=== PATIENT | male | born 1950 | race Caucasian/White ===

== ENCOUNTER → 2023-01-14 | Outpatient (CLI) | payer MEDICARE, BC | LOC: M PLARAD 10:47 | PROVIDERS: ATTEND Obstetrics & Gynecology | DX: C34.12 Malignant neoplasm of upper lobe, left bronchus or lung (principal) | CPT/HCPCS: 78815; A9552 ==

== ENCOUNTER → 2023-02-15 | Outpatient (CLI) | payer BC ==
[~2023-02-15] VITALS: Ht 175.3 cm; Wt 87.7 kg
[~2023-02-15] MED LIST: ALBU8.5H INH; ELIQ5TAB PO; FURO40TA2 PO; IPRA0.00 INH; LIDO1PAD TOP; LOSA25TA13 PO; METH1TAB13 PO; METO1TAB87 PO; NALO4SPR INH; OXYC-1 PO; OXYC20TA64 PO; PERCOCET PO; POTA-151 PO; SEMA14TA2 PO; SYMB16INH INH
[2023-02-15 14:11] VITALS: BP 112/60; TEMP 97; O2SAT 99
== END ==
LOC: M ONCR 13:12
PROVIDERS: ATTEND General Practice
DX: C34.12 Malignant neoplasm of upper lobe, left bronchus or lung (principal); G93.9 Disorder of brain, unspecified; G47.33 Obstructive sleep apnea (adult) (pediatric); I26.99 Other pulmonary embolism without acute cor pulmonale; I51.9 Heart disease, unspecified; I89.0 Lymphedema, not elsewhere classified; J44.9 Chronic obstructive pulmonary disease, unspecified; Z71.2 Person consulting for explanation of examination or test findings; Z79.01 Long term (current) use of anticoagulants; Z79.51 Long term (current) use of inhaled steroids; Z79.899 Other long term (current) drug therapy; Z87.891 Personal history of nicotine dependence; Z88.8 Allergy status to other drugs, medicaments and biological substances; Z91.040 Latex allergy status

== ENCOUNTER → 2023-02-22 | Outpatient (CLI) | payer MEDICARE, BC ==
[~2023-02-22] MED LIST changes: +ATIV1TAB10 PO; +CYCL5TAB PO; +FENT1DIS14 TOP; +HYOS125TA PO; +LIDO5TD TOP; +LIDOCAINE 1% MDV 20ML VIAL As Ordered ONE; +LIDOCAINE W/EPINEPHRINE 1% 20ML VIAL As Ordered ONE; +METF500T13 PO; +MIDAZOLAM INJ 2MG/2ML VIAL As Ordered ONE; +MORP1SOL5 PO; +NARC1SPR NARES; +ONDA-83 PO; +OXYC15TA66 PO; +OXYC30TA72 PO; +TRAN1DIS4 TOP; +ceFAZolin 2 GM/D5W 50 ML IV BAG As Ordered ONE; +ceFAZolin SOD 2 GM in IV 1 EA IV ONE; +fentaNYL 100 MCG/2 ML INJECTION As Ordered ONE
[2023-02-22 12:35] VITALS: TEMP 99.1
[2023-02-22 16:00] VITALS: BP 99/56; O2SAT 94
== END ==
LOC: M IRPRO 12:29
PROVIDERS: ATTEND Internal Medicine Hematology & Oncology
DX: C34.90 Malignant neoplasm of unspecified part of unspecified bronchus or lung (principal)
CPT/HCPCS: 36561; 99152; 99153; C1769; C1788; C1894; J0690; J2250; J3010

== ENCOUNTER 2023-03-01 15:03 | Inpatient (IN) | payer MEDICARE, BC ==
[~2023-03-01] VITALS: Ht 167.6 cm; Wt 83.5 kg
[~2023-03-01 15:03] MED LIST changes: -ATIV1TAB10 PO; -HYOS125TA PO; -LIDO5TD TOP; -LIDOCAINE 1% MDV 20ML VIAL As Ordered ONE; -LIDOCAINE W/EPINEPHRINE 1% 20ML VIAL As Ordered ONE; -METF500T13 PO; -MIDAZOLAM INJ 2MG/2ML VIAL As Ordered ONE; -MORP1SOL5 PO; -OXYC15TA66 PO; -TRAN1DIS4 TOP; -ceFAZolin 2 GM/D5W 50 ML IV BAG As Ordered ONE; -ceFAZolin SOD 2 GM in IV 1 EA IV ONE; -fentaNYL 100 MCG/2 ML INJECTION As Ordered ONE
[2023-03-01 17:48] LABS: BASO # 0.1 10^3/uL (0.0-0.2); BASO % 0.2 % (0.0-1.0); EOS # 0.2 10^3/uL (0.0-0.5); EOS % 0.8 % (0.0-3.0); LYMPH # 0.3 10^3/uL (1.5-5.0); LYMPH % 1.3 % (24.0-44.0); MEAN CORPUSCULAR HEMOGLOBIN 25.3 pg (27.0-33.0); MEAN CORPUSCULAR HGB CONC 31.7 g/dl (32.0-36.5); MEAN CORPUSCULAR VOLUME 79.9 fl (80.0-96.0); MONO # 0.9 10^3/uL (0.0-0.8); MONO % 4.3 % (2.0-8.0); NEUTROPHILS % 91.9 % (36.0-66.0); PLATELET COUNT, AUTOMATED 371 10^3/uL (150-450); RED BLOOD COUNT 4.38 10^6/uL (4.30-6.10); WHITE BLOOD COUNT 20.7 10^3/uL (4.0-10.0)
[2023-03-01 17:49] LABS: HEMOGLOBIN 11.1 g/dl (13.5-17.5)
[2023-03-01 18:14] LABS: THYROID STIMULATING HORMONE 3.795 uIU/ML (0.55-4.78)
[2023-03-01 18:19] LABS: ALBUMIN 2.6 G/DL (3.2-5.2); ALKALINE PHOSPHATASE 117 U/L (46-116); ALT/SGPT 14 U/L (7.0-40); AST/SGOT 19 U/L (<34); BILIRUBIN,DIRECT 0.6 MG/DL (<0.4); BILIRUBIN,TOTAL 1.3 MG/DL (0.3-1.2); BLOOD UREA NITROGEN 12 MG/DL (9-23); CARBON DIOXIDE LEVEL 32 MMOL/L (20-31); CHLORIDE LEVEL 94 MMOL/L (98-107); CREATININE FOR GFR 0.62 MG/DL (0.70-1.30); GLOMERULAR FILTRATION RATE > 60.0 (>42); GLUCOSE, FASTING 103 MG/DL (74-106); POTASSIUM SERUM 3.9 MMOL/L (3.5-5.1); SODIUM LEVEL 135 MMOL/L (136-145); TOTAL PROTEIN 6.1 G/DL (5.7-8.2)
[2023-03-01 18:20] LABS: RSV AMPLIFICATION NEGATIVE (NEGATIVE)
[2023-03-01] MEDS ORDERED: LIDO5TD TOP (21:08)
[2023-03-01] MEDS ORDERED: METF500T13 PO (21:12)
[2023-03-01] MEDS ORDERED: HOME MED LIST COMPLETE! XX SCH (21:15)
[2023-03-01] MEDS ORDERED: DEXTROSE 50% 50ML SYRINGE IV PRN (21:50)
[2023-03-01] MEDS ORDERED: GLUCAGON INJ 1MG VIAL SC PRN (21:50)
[2023-03-01] MEDS ORDERED: GLUCOSE 4GM CHEW TABLET PO PRN (21:50)
[2023-03-01 21:56] LABS: IRON (FE) 40 UG/DL (65-175); PERCENT SATURATION 16.9 % (19.7-50.0); TOTAL IRON BINDING CAPACITY 236 UG/DL (250-425)
[2023-03-01 21:57] LABS: FERRITIN 1181.6 NG/ML (10.5-307.3)
[2023-03-01 21:58] LABS: FOLATE 7.78 NG/ML (>5.4); VITAMIN B12 LEVEL 229 PG/ML (211-911)
[2023-03-01 22:21] VITALS: BP 122/68; TEMP 98.8; O2SAT 89
[2023-03-01] MEDS: ONDANSETRON 4MG TAB PO PRN (23:24)
[2023-03-01] MEDS: DOXYCYCLINE HYCLATE 100MG TABLET PO SCH (23:24)
[2023-03-01] MEDS: cefTRIAXone SOD 2 GM in D5W MINI-BAG PLUS 50 ML IV SCH (23:26)
[2023-03-01] MEDS: PERCOCET 5MG/325MG TAB PO PRN (23:26)
[2023-03-02] VITALS (12 sets, daily range): BP systolic 103–133; BP diastolic 55–67; TEMP 98.1–99.7; O2SAT 85–97
[2023-03-02] MEDS: ALBUTEROL 90 MCG/ACT 8GM HFA INHALER INH PRN (05:02)
[2023-03-02] MEDS: PERCOCET 5MG/325MG TAB PO PRN ×2 (05:39→19:37)
[2023-03-02 06:09] LABS: HEMATOCRIT 32.2 % (42.0-52.0); HEMOGLOBIN 10.2 g/dl (13.5-17.5); MEAN CORPUSCULAR HEMOGLOBIN 25.1 pg (27.0-33.0); MEAN CORPUSCULAR HGB CONC 31.7 g/dl (32.0-36.5); MEAN CORPUSCULAR VOLUME 79.1 fl (80.0-96.0); PLATELET COUNT, AUTOMATED 348 10^3/uL (150-450); RED BLOOD COUNT 4.07 10^6/uL (4.30-6.10); WHITE BLOOD COUNT 17.7 10^3/uL (4.0-10.0)
[2023-03-02 06:19] LABS: INR 1.27; PROTHROMBIN TIME 16.2 SECONDS (12.5-14.5)
[2023-03-02 06:20] LABS: PARTIAL THROMBOPLASTIN TIME 32.8 SECONDS (24.8-34.2)
[2023-03-02 06:39] LABS: BLOOD UREA NITROGEN 10 MG/DL (9-23); CALCIUM LEVEL 9.5 MG/DL (8.3-10.6); CARBON DIOXIDE LEVEL 32 MMOL/L (20-31); CHLORIDE LEVEL 94 MMOL/L (98-107); CREATININE FOR GFR 0.58 MG/DL (0.70-1.30); GLOMERULAR FILTRATION RATE > 60.0 (>42); GLUCOSE, FASTING 98 MG/DL (74-106); MAGNESIUM LEVEL 1.5 MG/DL (1.8-2.4); POTASSIUM SERUM 3.8 MMOL/L (3.5-5.1); SODIUM LEVEL 133 MMOL/L (136-145)
[2023-03-02 06:47] LABS: PROCALCITONIN 0.48 ng/ml
[2023-03-02] MEDS: INSULIN LISPRO (NovoLOG) PER UNIT SC SCH ×4 (07:30→20:57)
[2023-03-02] MEDS: SYMBICORT 160/4.5MCG INHALER 6GM INH SCH ×2 (07:30→19:19)
[2023-03-02] MEDS ORDERED: APIXABAN 5 MG TAB (ELIQUIS) PO SCH (09:00)
[2023-03-02] MEDS ORDERED: CYANOCOBALAMIN 1,000MCG/ML 1ML VIAL IM SCH (09:00)
[2023-03-02] MEDS: LIDOCAINE 5% (LIDODERM) PATCH TOP SCH (09:15)
[2023-03-02] MEDS: LOSARTAN 25 MG TAB PO SCH (09:16)
[2023-03-02] MEDS: METOPROLOL TART 25 MG TABLET PO SCH ×2 (09:16→21:00)
[2023-03-02] MEDS: DOXYCYCLINE HYCLATE 100MG TABLET PO SCH ×2 (09:16→21:16)
[2023-03-02] MEDS: POTASSIUM CHLORIDE 10MEQ SR TABLET PO SCH (09:16)
[2023-03-02] MEDS: DOCUSATE SODIUM 100MG CAPSULE PO SCH ×2 (09:16→21:16)
[2023-03-02] MEDS: SODIUM CHLORIDE 0.9% INJ 10 ML SYR IV SCH (09:18)
[2023-03-02] MEDS: oxyCODONE 15MG CR TAB PO SCH ×2 (09:23→21:18)
[2023-03-02] MEDS: METHYLPHENIDATE ER 18MG TABLET (CONCERTA) PO SCH (12:24)
[2023-03-02] MEDS: IPRATROPIUM 0.5MG/ALBUTEROL 2.5MG INH SOL UD 3ML (DUONEB) INH PRN (17:29)
[2023-03-02] MEDS: cefTRIAXone SOD 2 GM in D5W MINI-BAG PLUS 50 ML IV SCH (23:24)
[2023-03-03 02:38] VITALS: O2SAT 86
[2023-03-03] MEDS: ALBUTEROL 90 MCG/ACT 8GM HFA INHALER INH PRN (02:55)
[2023-03-03 04:25] VITALS: O2SAT 91
[2023-03-03 05:40] VITALS: BP 133/65; TEMP 98.8; O2SAT 90
[2023-03-03 06:18] LABS: HEMATOCRIT 29.1 % (42.0-52.0); HEMOGLOBIN 9.2 g/dl (13.5-17.5); MEAN CORPUSCULAR HGB CONC 31.6 g/dl (32.0-36.5); MEAN CORPUSCULAR VOLUME 79.1 fl (80.0-96.0); PLATELET COUNT, AUTOMATED 284 10^3/uL (150-450); RED BLOOD COUNT 3.68 10^6/uL (4.30-6.10); WHITE BLOOD COUNT 14.9 10^3/uL (4.0-10.0)
[2023-03-03 06:44] LABS: BLOOD UREA NITROGEN 10 MG/DL (9-23); CALCIUM LEVEL 9.2 MG/DL (8.3-10.6); CARBON DIOXIDE LEVEL 31 MMOL/L (20-31); CHLORIDE LEVEL 95 MMOL/L (98-107); GLOMERULAR FILTRATION RATE > 60.0 (>42); GLUCOSE, FASTING 107 MG/DL (74-106); PHOSPHORUS LEVEL 3.4 MG/DL (2.4-5.1); POTASSIUM SERUM 4.1 MMOL/L (3.5-5.1); SODIUM LEVEL 134 MMOL/L (136-145)
[2023-03-03] MEDS: INSULIN LISPRO (NovoLOG) PER UNIT SC SCH ×4 (07:26→20:47)
[2023-03-03] MEDS: SYMBICORT 160/4.5MCG INHALER 6GM INH SCH ×2 (07:32→19:25)
[2023-03-03] MEDS: DOXYCYCLINE HYCLATE 100MG TABLET PO SCH ×2 (09:42→20:37)
[2023-03-03] MEDS: DOCUSATE SODIUM 100MG CAPSULE PO SCH ×2 (09:42→20:36)
[2023-03-03] MEDS: METHYLPHENIDATE ER 18MG TABLET (CONCERTA) PO SCH (09:42)
[2023-03-03] MEDS: POTASSIUM CHLORIDE 10MEQ SR TABLET PO SCH (09:43)
[2023-03-03] MEDS: CYANOCOBALAMIN 500 MCG TAB PO SCH (09:43)
[2023-03-03] MEDS: oxyCODONE 15MG CR TAB PO SCH ×2 (09:44→20:37)
[2023-03-03] MEDS: LOSARTAN 25 MG TAB PO SCH (09:44)
[2023-03-03] MEDS: METOPROLOL TART 25 MG TABLET PO SCH ×2 (09:44→20:37)
[2023-03-03] MEDS: SODIUM CHLORIDE 0.9% INJ 10 ML SYR IV SCH (09:45)
[2023-03-03] MEDS: LIDOCAINE 5% (LIDODERM) PATCH TOP SCH (09:47)
[2023-03-03 10:17] VITALS: O2SAT 91
[2023-03-03] MEDS: PERCOCET 5MG/325MG TAB PO PRN (13:17)
[2023-03-03 14:00] VITALS: BP 109/49; TEMP 97.7; O2SAT 90
[2023-03-03] MEDS: ACETAMINOPHEN TAB 650MG DOSE (2X325MG) PO PRN (18:28)
[2023-03-03 20:50] VITALS: BP 100/54; TEMP 97.5; O2SAT 90
[2023-03-03] MEDS: cefTRIAXone SOD 2 GM in D5W MINI-BAG PLUS 50 ML IV SCH (22:10)
[2023-03-04 05:51] LABS: HEMATOCRIT 30.8 % (42.0-52.0); HEMOGLOBIN 9.7 g/dl (13.5-17.5); MEAN CORPUSCULAR HEMOGLOBIN 25.1 pg (27.0-33.0); MEAN CORPUSCULAR HGB CONC 31.5 g/dl (32.0-36.5); MEAN CORPUSCULAR VOLUME 79.8 fl (80.0-96.0); PLATELET COUNT, AUTOMATED 278 10^3/uL (150-450); RED BLOOD COUNT 3.86 10^6/uL (4.30-6.10); WHITE BLOOD COUNT 14.1 10^3/uL (4.0-10.0)
[2023-03-04 05:53] VITALS: BP 112/62; TEMP 99; O2SAT 95
[2023-03-04 06:14] LABS: ALBUMIN 2.1 G/DL (3.2-5.2); BLOOD UREA NITROGEN 10 MG/DL (9-23); CALCIUM LEVEL 9.1 MG/DL (8.3-10.6); CARBON DIOXIDE LEVEL 30 MMOL/L (20-31); CHLORIDE LEVEL 95 MMOL/L (98-107); CREATININE FOR GFR 0.51 MG/DL (0.70-1.30); GLOMERULAR FILTRATION RATE > 60.0 (>42); GLUCOSE, FASTING 103 MG/DL (74-106); PHOSPHORUS LEVEL 3.6 MG/DL (2.4-5.1); POTASSIUM SERUM 4.3 MMOL/L (3.5-5.1); SODIUM LEVEL 133 MMOL/L (136-145)
[2023-03-04] MEDS: INSULIN LISPRO (NovoLOG) PER UNIT SC SCH ×4 (07:30→20:31)
[2023-03-04] MEDS: SYMBICORT 160/4.5MCG INHALER 6GM INH SCH ×2 (07:55→21:03)
[2023-03-04 08:00] VITALS: O2SAT 93
[2023-03-04] MEDS: METOPROLOL TART 25 MG TABLET PO SCH ×3 (09:00→20:29)
[2023-03-04 09:32] VITALS: BP 110/60
[2023-03-04] MEDS: LIDOCAINE 5% (LIDODERM) PATCH TOP SCH (09:44)
[2023-03-04] MEDS: SODIUM CHLORIDE 0.9% INJ 10 ML SYR IV SCH (09:44)
[2023-03-04] MEDS: oxyCODONE 15MG CR TAB PO SCH ×2 (09:45→20:28)
[2023-03-04] MEDS: CYANOCOBALAMIN 500 MCG TAB PO SCH (09:45)
[2023-03-04] MEDS: METHYLPHENIDATE ER 18MG TABLET (CONCERTA) PO SCH (09:46)
[2023-03-04] MEDS: LOSARTAN 25 MG TAB PO SCH (09:46)
[2023-03-04] MEDS: DOXYCYCLINE HYCLATE 100MG TABLET PO SCH ×2 (09:46→20:28)
[2023-03-04] MEDS: DOCUSATE SODIUM 100MG CAPSULE PO SCH ×2 (09:47→20:28)
[2023-03-04] MEDS: POTASSIUM CHLORIDE 10MEQ SR TABLET PO SCH (09:47)
[2023-03-04] MEDS: PERCOCET 5MG/325MG TAB PO PRN ×2 (11:16→16:32)
[2023-03-04 14:58] VITALS: BP 109/65; TEMP 97.7; O2SAT 94
[2023-03-04] MEDS: NYSTATIN 500,000U/5ML SUSP UDC PO SCH ×2 (16:32→20:28)
[2023-03-04] MEDS: ONDANSETRON 4MG TAB PO PRN (16:42)
[2023-03-04] MEDS: IPRATROPIUM 0.5MG/ALBUTEROL 2.5MG INH SOL UD 3ML (DUONEB) INH PRN (16:58)
[2023-03-04] MEDS ORDERED: guaiFENesin DM LIQ 10ML UD PO PRN (17:20)
[2023-03-04] MEDS ORDERED: ONDANSETRON 4MG 2ML VIAL IV PRN (17:20)
[2023-03-04] MEDS: guaiFENesin/CODEINE SYRUP 5 ML UDC PO PRN (18:41)
[2023-03-04 22:00] VITALS: BP 108/63; TEMP 98.1; O2SAT 95
[2023-03-04] MEDS: cefTRIAXone SOD 2 GM in D5W MINI-BAG PLUS 50 ML IV SCH (22:45)
[2023-03-05 06:29] VITALS: BP 116/64; TEMP 97.9; O2SAT 94
[2023-03-05 06:36] LABS: HEMATOCRIT 27.7 % (42.0-52.0); HEMOGLOBIN 8.6 g/dl (13.5-17.5); MEAN CORPUSCULAR HEMOGLOBIN 24.5 pg (27.0-33.0); MEAN CORPUSCULAR VOLUME 78.9 fl (80.0-96.0); PLATELET COUNT, AUTOMATED 250 10^3/uL (150-450); RED BLOOD COUNT 3.51 10^6/uL (4.30-6.10); WHITE BLOOD COUNT 10.9 10^3/uL (4.0-10.0)
[2023-03-05 06:45] LABS: ALBUMIN 1.8 G/DL (3.2-5.2); BLOOD UREA NITROGEN 12 MG/DL (9-23); CALCIUM LEVEL 8.9 MG/DL (8.3-10.6); CARBON DIOXIDE LEVEL 32 MMOL/L (20-31); CHLORIDE LEVEL 94 MMOL/L (98-107); CREATININE FOR GFR 0.52 MG/DL (0.70-1.30); GLOMERULAR FILTRATION RATE > 60.0 (>42); GLUCOSE, FASTING 99 MG/DL (74-106); PHOSPHORUS LEVEL 3.8 MG/DL (2.4-5.1); POTASSIUM SERUM 4.5 MMOL/L (3.5-5.1); SODIUM LEVEL 131 MMOL/L (136-145)
[2023-03-05] MEDS: INSULIN LISPRO (NovoLOG) PER UNIT SC SCH ×4 (07:30→22:20)
[2023-03-05] MEDS: SYMBICORT 160/4.5MCG INHALER 6GM INH SCH ×2 (08:13→20:32)
[2023-03-05] MEDS: DOCUSATE SODIUM 100MG CAPSULE PO SCH (08:28)
[2023-03-05] MEDS: NYSTATIN 500,000U/5ML SUSP UDC PO SCH ×5 (08:28→22:32)
[2023-03-05] MEDS: POTASSIUM CHLORIDE 10MEQ SR TABLET PO SCH (08:29)
[2023-03-05] MEDS: CYANOCOBALAMIN 500 MCG TAB PO SCH (08:29)
[2023-03-05] MEDS: METHYLPHENIDATE ER 18MG TABLET (CONCERTA) PO SCH (08:29)
[2023-03-05] MEDS: oxyCODONE 15MG CR TAB PO SCH ×2 (08:31→22:31)
[2023-03-05] MEDS: DOXYCYCLINE HYCLATE 100MG TABLET PO SCH ×2 (08:31→22:32)
[2023-03-05] MEDS: LIDOCAINE 5% (LIDODERM) PATCH TOP SCH (08:32)
[2023-03-05] MEDS: METOPROLOL TART 25 MG TABLET PO SCH ×3 (08:33→20:36)
[2023-03-05] MEDS: SODIUM CHLORIDE 0.9% INJ 10 ML SYR IV SCH (08:33)
[2023-03-05] MEDS: LOSARTAN 25 MG TAB PO SCH (08:34)
[2023-03-05 09:00] VITALS: O2SAT 95
[2023-03-05] MEDS ORDERED: NALOXONE INJ 0.4MG/1ML VIAL IV PRN (10:15)
[2023-03-05] MEDS ORDERED: HYDROMORPHONE HCL 0.5 MG/ 0.5 ML SYRINGE IV ONE (10:15)
[2023-03-05] MEDS: SODIUM CHLORIDE 0.9% INJ 10 ML SYR IV PRN ×4 (10:34→23:51)
[2023-03-05] MEDS: PERCOCET 5MG/325MG TAB PO PRN (11:23)
[2023-03-05] MEDS ORDERED: MOM 30ML SUSPENSION UDC PO PRN (11:40)
[2023-03-05] MEDS ORDERED: SENOKOT S TAB PO PRN (11:40)
[2023-03-05] MEDS ORDERED: MIRALAX *UNIT DOSE* 17GM PACKET PO PRN (11:40)
[2023-03-05 14:00] VITALS: BP 101/56; TEMP 97.2; O2SAT 91
[2023-03-05] MEDS: ACETAMINOPHEN TAB 650MG DOSE (2X325MG) PO PRN ×2 (16:12→23:00)
[2023-03-05 20:39] VITALS: BP 106/56; TEMP 97.9; O2SAT 92
[2023-03-05 22:19] VITALS: BP 123/56; TEMP 100.3; O2SAT 95; O2SAT 96
[2023-03-05] MEDS: cefTRIAXone SOD 2 GM in D5W MINI-BAG PLUS 50 ML IV SCH (22:32)
[2023-03-05] MEDS: IPRATROPIUM 0.5MG/ALBUTEROL 2.5MG INH SOL UD 3ML (DUONEB) INH PRN (23:34)
[2023-03-06] VITALS (9 sets, daily range): BP systolic 99–125; BP diastolic 49–59; TEMP 97.8–100.4; O2SAT 92–98
[2023-03-06] MEDS: PERCOCET 5MG/325MG TAB PO PRN (02:24)
[2023-03-06 05:52] LABS: HEMATOCRIT 27.2 % (42.0-52.0); HEMOGLOBIN 8.4 g/dl (13.5-17.5); MEAN CORPUSCULAR HEMOGLOBIN 24.8 pg (27.0-33.0); MEAN CORPUSCULAR HGB CONC 30.9 g/dl (32.0-36.5); MEAN CORPUSCULAR VOLUME 80.2 fl (80.0-96.0); PLATELET COUNT, AUTOMATED 222 10^3/uL (150-450); RED BLOOD COUNT 3.39 10^6/uL (4.30-6.10); WHITE BLOOD COUNT 9.5 10^3/uL (4.0-10.0)
[2023-03-06 06:14] LABS: ALBUMIN 1.8 G/DL (3.2-5.2); BLOOD UREA NITROGEN 9 MG/DL (9-23); CALCIUM LEVEL 8.7 MG/DL (8.3-10.6); CARBON DIOXIDE LEVEL 31 MMOL/L (20-31); CHLORIDE LEVEL 94 MMOL/L (98-107); CREATININE FOR GFR 0.49 MG/DL (0.70-1.30); GLOMERULAR FILTRATION RATE > 60.0 (>42); GLUCOSE, FASTING 109 MG/DL (74-106); PHOSPHORUS LEVEL 3.9 MG/DL (2.4-5.1); POTASSIUM SERUM 4.2 MMOL/L (3.5-5.1); SODIUM LEVEL 132 MMOL/L (136-145)
[2023-03-06] MEDS ORDERED: HYDROMORPHONE HCL 0.5 MG/ 0.5 ML SYRINGE IV ONE (07:00)
[2023-03-06] MEDS: INSULIN LISPRO (NovoLOG) PER UNIT SC SCH ×4 (07:30→21:00)
[2023-03-06] MEDS: SYMBICORT 160/4.5MCG INHALER 6GM INH SCH ×2 (07:49→21:08)
[2023-03-06] MEDS: LOSARTAN 25 MG TAB PO SCH (08:38)
[2023-03-06] MEDS: METOPROLOL TART 25 MG TABLET PO SCH ×2 (08:38→21:00)
[2023-03-06] MEDS: CYANOCOBALAMIN 500 MCG TAB PO SCH (08:38)
[2023-03-06] MEDS: DOXYCYCLINE HYCLATE 100MG TABLET PO SCH ×2 (08:39→22:30)
[2023-03-06] MEDS: SODIUM CHLORIDE 0.9% INJ 10 ML SYR IV SCH (08:39)
[2023-03-06] MEDS: LIDOCAINE 5% (LIDODERM) PATCH TOP SCH (08:39)
[2023-03-06] MEDS: POTASSIUM CHLORIDE 10MEQ SR TABLET PO SCH (08:44)
[2023-03-06] MEDS: NYSTATIN 500,000U/5ML SUSP UDC PO SCH ×4 (08:44→22:30)
[2023-03-06] MEDS: oxyCODONE 15MG CR TAB PO SCH ×2 (08:45→22:35)
[2023-03-06] MEDS: METHYLPHENIDATE ER 18MG TABLET (CONCERTA) PO SCH (08:49)
[2023-03-06] MEDS ORDERED: DOXYCYCLINE HYCLATE 100MG TABLET PO SCH (17:00)
[2023-03-06] MEDS ORDERED: HYOSCYAMINE SULFATE 0.125 MG SUBL TABLET PO PRN (17:20)
[2023-03-06] MEDS ORDERED: FLEET ENEMA PR PRN (17:20)
[2023-03-06] MEDS ORDERED: MORPHINE 10MG/0.5ML ORAL CONCENTRATE SOLUTION U/D SL PRN (17:20)
[2023-03-06] MEDS ORDERED: SCOPOLAMINE 1MG TRANSDERMAL PATCH TOP PRN (17:20)
[2023-03-06] MEDS ORDERED: LORazepam 1 MG TAB PO PRN (17:20)
[2023-03-06] MEDS ORDERED: ONDANSETRON 4MG ORAL DISINTEGRATING TAB PO PRN (17:20)
[2023-03-06] MEDS ORDERED: ATROPINE SULFATE 1% OPHTH SOLN 2ML BTL SL PRN (17:20)
[2023-03-06] MEDS ORDERED: HYOS125TA PO (18:04)
[2023-03-06] MEDS ORDERED: ATIV1TAB10 PO (18:04)
[2023-03-06] MEDS ORDERED: MORP1SOL5 PO (18:04)
[2023-03-06] MEDS ORDERED: TRAN1DIS4 TOP (18:06)
[2023-03-06] MEDS: ACETAMINOPHEN TAB 650MG DOSE (2X325MG) PO PRN ×2 (18:08→22:32)
[2023-03-06] MEDS ORDERED: CEFDINIR 300 MG CAP (OMNICEF) PO SCH (21:00)
[2023-03-06] MEDS: IPRATROPIUM 0.5MG/ALBUTEROL 2.5MG INH SOL UD 3ML (DUONEB) INH PRN (21:10)
[2023-03-06] MEDS: guaiFENesin/CODEINE SYRUP 5 ML UDC PO PRN (22:31)
[2023-03-07 00:53] VITALS: O2SAT 97
[2023-03-07 06:42] VITALS: TEMP 100.7
[2023-03-07] MEDS: ACETAMINOPHEN TAB 650MG DOSE (2X325MG) PO PRN ×2 (06:47→10:26)
[2023-03-07] MEDS: IPRATROPIUM 0.5MG/ALBUTEROL 2.5MG INH SOL UD 3ML (DUONEB) INH PRN (07:19)
[2023-03-07] MEDS: SYMBICORT 160/4.5MCG INHALER 6GM INH SCH (07:19)
[2023-03-07] MEDS: INSULIN LISPRO (NovoLOG) PER UNIT SC SCH (07:30)
[2023-03-07] MEDS: NYSTATIN 500,000U/5ML SUSP UDC PO SCH ×3 (08:12→17:00)
[2023-03-07] MEDS: oxyCODONE 15MG CR TAB PO SCH (08:13)
[2023-03-07] MEDS: LIDOCAINE 5% (LIDODERM) PATCH TOP SCH (08:13)
[2023-03-07] MEDS: SODIUM CHLORIDE 0.9% INJ 10 ML SYR IV SCH (08:14)
[2023-03-07] MEDS ORDERED: OXYC15TA66 PO (08:17)
[2023-03-07 08:30] VITALS: O2SAT 85
[2023-03-07 08:37] VITALS: O2SAT 95
[2023-03-07 09:18] VITALS: TEMP 98.7
[2023-03-07] MEDS: guaiFENesin/CODEINE SYRUP 5 ML UDC PO PRN (10:26)
[2023-03-07] MEDS ORDERED: CALCIUM CARBONATE 500 MG CHEW U/D PO ONE (10:50)
[2023-03-07] MEDS ORDERED: PANTOPRAZOLE 20 MG TAB PO ONE (12:00)
[2023-03-07 15:58] VITALS: O2SAT 95
[2023-03-07] MEDS ORDERED: CALCIUM CARBONATE 500 MG CHEW U/D PO PRN (16:00)
[2023-03-08] MEDS ORDERED: PANTOPRAZOLE 20 MG TAB PO SCH (09:00)
== END 2023-03-07 19:02 | disposition hospice, home (50) | DRG 811 ==
LOC: M ED 15:03 → M ED INP 15:04 → M MSPAV 22:21 → OBSVTOIN 03-04 17:19
PROVIDERS: ADMIT Internal Medicine; ATTEND General Practice
DX: D64.81 Anemia due to antineoplastic chemotherapy (principal); G93.41 Metabolic encephalopathy; J15.6 Pneumonia due to other Gram-negative bacteria; J96.01 Acute respiratory failure with hypoxia; B37.0 Candidal stomatitis; C79.51 Secondary malignant neoplasm of bone; E87.1 Hypo-osmolality and hyponatremia; E46 Unspecified protein-calorie malnutrition; C79.2 Secondary malignant neoplasm of skin; C79.89 Secondary malignant neoplasm of other specified sites; C79.72 Secondary malignant neoplasm of left adrenal gland; J91.0 Malignant pleural effusion; J44.0 Chronic obstructive pulmonary disease with (acute) lower respiratory infection; R64 Cachexia; C34.12 Malignant neoplasm of upper lobe, left bronchus or lung; T45.1X5A Adverse effect of antineoplastic and immunosuppressive drugs, initial encounter; Z51.5 Encounter for palliative care; Z66 Do not resuscitate; R53.83 Other fatigue; R53.81 Other malaise; I25.10 Atherosclerotic heart disease of native coronary artery without angina pectoris; R41.0 Disorientation, unspecified; I89.0 Lymphedema, not elsewhere classified; R53.1 Weakness; E11.9 Type 2 diabetes mellitus without complications; G47.33 Obstructive sleep apnea (adult) (pediatric); I10 Essential (primary) hypertension; Z95.5 Presence of coronary angioplasty implant and graft; Z90.49 Acquired absence of other specified parts of digestive tract; Z95.828 Presence of other vascular implants and grafts; Z79.01 Long term (current) use of anticoagulants; Z79.84 Long term (current) use of oral hypoglycemic drugs; Z79.899 Other long term (current) drug therapy; Z88.8 Allergy status to other drugs, medicaments and biological substances; Z91.040 Latex allergy status; Z86.711 Personal history of pulmonary embolism

== ENCOUNTER 2023-03-05 13:45 | Outpatient (RCR) | payer MEDICARE, BC ==
[~2023-03-05 13:45] MED LIST changes: +LIDO5TD TOP; +METF500T13 PO
[2023-03-06] MEDS ORDERED: MORP1SOL5 PO (18:04)
[2023-03-06] MEDS ORDERED: ATIV1TAB10 PO (18:04)
[2023-03-06] MEDS ORDERED: HYOS125TA PO (18:04)
[2023-03-06] MEDS ORDERED: TRAN1DIS4 TOP (18:06)
[2023-03-07] MEDS ORDERED: OXYC15TA66 PO (08:17)
== END 2023-03-11 ==
LOC: M ONCR 13:45
PROVIDERS: ATTEND General Practice
DX: C34.12 Malignant neoplasm of upper lobe, left bronchus or lung (principal)